=== PATIENT | female | born 1955 | race Caucasian/White ===

== ENCOUNTER → 2020-02-10 13:10 | Outpatient (BNVA) | payer MEDICARE, MEDICAID, SELFPAY | PROVIDERS: PCP Family Medicine; Visit Provider Urology | DX: R31.9 Hematuria, unspecified (principal); N81.3 Complete uterovaginal prolapse; Z85.528 Personal history of other malignant neoplasm of kidney; Z90.5 Acquired absence of kidney | CPT/HCPCS: 52000; 99202 ==